=== PATIENT | male | born 1980 | race Two or more races ===

== ENCOUNTER 2019-09-25 18:02 | Emergency (ER) | payer SELFPAY ==
[~2019-09-25] VITALS: Ht 170.2 cm; Wt 77.1 kg
[2019-09-25] MEDS ORDERED: HALOPERIDOL LACTATE INJ 5 MG/ML VIAL IVP ONE (18:30)
[2019-09-25] MEDS ORDERED: IV NS 0.9% 1,000 ML BAG IV ONE (18:30)
[2019-09-25 19:01] VITALS: BP 132/82
--- NOTE | 2019-09-25 19:01 | NUR ---
PT [id number]. bibself c/o fever started today. No sob noted. RR even and unlabored. awaiting MD for eval. Will continue to monitor.
== END 2019-09-25 20:00 | disposition home or self-care (01) ==
LOC: ER 18:02
DX: J06.9 Acute upper respiratory infection, unspecified (principal); F17.200 Nicotine dependence, unspecified, uncomplicated
CPT/HCPCS: 71045-TC

== ENCOUNTER 2021-06-05 08:49 | Emergency (ER) | payer SELFPAY ==
[~2021-06-05] VITALS: Ht 167.6 cm; Wt 93.0 kg
--- NOTE | 2021-06-05 09:04 | NUR ---
DR JENNINGS AT THE BEDSIDE
--- NOTE | 2021-06-05 09:06 | NUR ---
BIBS FOR C/O LOWER BACK PAIN R/T NECK 04/01. NO APPARENT INJURY NOTED. DENIES HAVING TRAUMA. RESPIRATION REGULAR AND UNLABORED. WILL CONTINUE TO MONITOR THE PATIENT.
--- NOTE | 2021-06-05 09:17 | NUR ---
TAKEN TO CT
--- NOTE | 2021-06-05 09:25 | NUR ---
THE PATIENT IS BACK FROM CT
[2021-06-05] MEDS ORDERED: KETOROLAC TROMETHAMINE 15 MG/ML VIAL ONE ×2 (09:29→10:13)
[2021-06-05] MEDS ORDERED: CYCLOBENZAPRINE 10 MG TABLET ONE (09:29)
[2021-06-05] MEDS ORDERED: DEXAMETHASONE SOD PHOSPHATE 10 MG/ML VIAL ONE (09:29)
[2021-06-05] MEDS: CYCLOBENZAPRINE 10 MG TABLET PO ONE (09:35)
[2021-06-05] MEDS: KETOROLAC TROMETHAMINE INJ 60 MG/2 ML VIAL IM ONE ×2 (09:35→10:24)
[2021-06-05] MEDS: DEXAMETHASONE SOD PHOSPHATE 10 MG/ML VIAL IM ONE (09:36)
[2021-06-05] MEDS ORDERED: MORPHINE SULFATE INJ 4 MG/ML DISP.SYRIN ONE (10:13)
--- NOTE | 2021-06-05 10:16 | NUR ---
PT PACING IN ROOM IN PAIN, AWARE
[2021-06-05] MEDS: MORPHINE SULFATE INJ 2 MG/ML DISP.SYRIN IM ONE (10:23)
[2021-06-05] MEDS ORDERED: OXYC5CAP18 PO (10:49)
[2021-06-05] MEDS ORDERED: CYCL5TAB PO (10:49)
[2021-06-05] MEDS ORDERED: NAPR-1009 PO (10:49)
--- NOTE | 2021-06-05 11:09 | NUR ---
Patient discharged to home in stable condition. Written and verbal after care instructions given. Patient verbalizes understanding of instruction.
[2021-06-05 11:10] VITALS: BP 136/81
== END 2021-06-05 11:08 | disposition home or self-care (01) ==
LOC: ER 08:52
DX: M54.59 Other low back pain (principal); M54.12 Radiculopathy, cervical region
CPT/HCPCS: 72125; 96372 ×2; 99284; J1100; J1885 ×2; J2270